=== PATIENT | male | born 1955 | race African-American/Black ===

== ENCOUNTER 2016-10-03 10:36 | Inpatient (IN) ==
--- NOTE | 2016-10-03 10:46 | Emergency Department Note ---
Disposition Clinical Impression: Non-STEMI (non-ST elevated myocardial infarction) Chest pain Qualifiers: Chest pain type: unspecified Qualified Code(s): R07.9 - Chest pain, unspecified Disposition: Admitted As Inpatient Condition: Good Time of Disposition: 11:23 Chest Pain HPI - General Chief Complaint: ED Chest Pain Stated Complaint: Chest pain Time Seen by Provider: 10/03/16 10:43 Source: patient, EMS Mode of arrival: EMS Limitations: no limitations Vital Signs Reviewed: Yes Nursing Notes Reviewed: Yes - History of Present Illness HPI Narrative: 61-year-old patient has been on dialysis for about 6 months developed chest pain was seen at [facility] and was admitted with a positive troponin. The patient did not want to stay at [facility] request transfer to the [place] went to the [place] they did lab work found positive troponin centimeters here for evaluation. Patient's been on dialysis for about 6 months he has a right upper chest dialysis catheter. Patient states he's been having intermittent chest pain. Patient was sent here for evaluation. Pt complaint: chest pain Onset (ago): day(s) Duration: intermittent Onset: during rest Pain Location: substernal, left chest Severity: mild, moderate Quality: tightness, aching, heaviness Pain Radiation: none Improves with: nothing Worsens with: nothing - Related Data Allergies Allergy/AdvReac Type Severity Reaction Status Date / Time Methadone AdvReac Itching Verified 10/03/16 10:46 Constitutional: Denies: fever, chills, weakness, weight change Eyes: Denies: eye pain, eye discharge, vision change ENT ED: Denies: ear pain, throat pain, dental pain, hearing loss, epistaxis, congestion, dysphagia Cardiovascular: Reports: chest pain. Denies: palpitations, dyspnea on exertion , edema, syncope Respiratory: Denies: cough, dyspnea, wheezes, hemoptysis, stridor Gastrointestinal: Denies: abdominal pain, nausea, vomiting, diarrhea, constipation, hematemesis, melena, hematochezia Genitourinary: Denies: urgency, dysuria, frequency, hematuria Musculoskeletal: Denies: back pain, neck pain, arthralgia, myalgia Integumentary: Denies: rash, abrasion, lesions Neurological: Denies: headache, weakness, numbness, paresthesias, confusion, abnormal gait, vertigo Psychiatric: Denies: anxiety, depression, suicidal thoughts, homicidal thoughts , auditory hallucinations, visual hallucinations Endocrine: Denies: fatigue Hematological/Lymphatic: Denies: easy bleeding, easy bruising Allergic/Immunologic: Denies: facial swelling, urticaria Physical Exam - General Limitations: no limitations General appearance: alert, in no apparent distress - Head Head exam: atraumatic, normocephalic, normal inspection - Eye Eye exam: Present: normal appearance, PERRL, EOMI - ENT ENT exam: normal exam, normal oropharynx, mucous membranes moist - Neck Neck exam: Present: normal inspection, full ROM, trachea midline - Chest Chest inspection: Present: normal inspection, symmetric chest wall rise - Respiratory Respiratory exam: Present: normal lung sounds bilaterally - Cardiovascular Cardiovascular exam: Present: regular rate, normal rhythm, normal heart sounds - Abdominal Exam Abdominal exam: Present: soft, Non-Tender. Absent: tenderness, distention, guarding, rebound, rigidity - Extremities Exam Extremities exam: Present: normal inspection, full ROM. Absent: tenderness, pedal edema - Expanded Lower Extremity Exam Neurovascular/Tendon exam: Absent: motor deficit, sensory deficit, tendon deficit Gait: not tested/not observed - Back Exam Back exam: Present: normal inspection - Neurological Exam Neurological exam: Present: alert, oriented X3 - Psychiatric Psychiatric exam: Present: normal affect, normal mood - Skin Skin exam: Present: warm, dry, intact, normal color Course - Reevaluation(s) Reevaluation #1: 61-year-old who was admitted to [facility] with positive troponins. Patient was then sent to the [place] per the patient request and then they were sent here after finding a positive troponin. Patient's had intermittent chest pain. Laboratory results from the [place] today white count is 8 hemoglobin is 10.2 hematocrit, plt 126 was 31.6 BNP is 7649, troponin I was 0.101 with a normal being up to 0.045 CK was 148 AST was 30 a LT 19 bili 0.9 sodium 135 potassium 4.8 chloride of 98 carbon dioxide 25 glucose 208 creatinine 6.17 chest x-ray showed no acute infiltrate or pleural effusion. Time: 11:10 Reevaluation #2: Patient's blood pressure was noted to be elevated at 212/108. We'll apply 1 inch of Nitropaste. Time: 13:34 - Consultations Consultation #1: Discussed with Dr. Ritchie, cardiology will see in consult. Time: 11:18 Consultation #2: Discussed with Oscar Fajardo who accepts the patient for admission. Time: 11:21 Vital Signs Temperature 98 F 10/03/16 10:46 Pulse Rate 69 10/03/16 10:46 Respiratory Rate 18 10/03/16 10:46 Blood Pressure 144/86 10/03/16 10:46 O2 Sat by Pulse Oximetry 99 10/03/16 10:46 Temperature 98 F 10/03/16 10:46 Pulse Rate 69 10/03/16 13:06 Respiratory Rate 18 10/03/16 13:06 Blood Pressure 193/82 10/03/16 13:06 O2 Sat by Pulse Oximetry 100 10/03/16 13:06 Oxygen Delivery Oxygen Delivery Room Air Chest Pain - Lab Data Result diagrams: 10/03/16 11:40 Lab Results 10/03/16 10/03/16 Range/Units 11:40 11:40 WBC 7.4 (4.3-11.1) K/mcL RBC 3.31 L (4.19-5.50) M/mcL Hgb 9.6 L (12.9-16.9) g/dL Hct 30.1 L (37.5-50.1) % MCV 90.9 (83.0-100.0) fL MCH 29.0 (28.0-33.3) pg MCHC 31.9 (31.6-35.5) g/dL RDW 15.9 H (11.5-14.5) % Plt Count 119 L (140-400) K/mcL MPV 11.3 (9.4-12.4) fL PT 14.1 H (9.4-12.1) Seconds INR 1.3 APTT 29.2 (26.0-36.0) Seconds - EKG Data EKG attestation: Yes I reviewed and interpreted this EKG. EKG results narrative: Paced rhythm Heart Score - Score History: Moderately Suspicious EKG: Normal Age: 45-65 Risk Factors: Equal/Greater than 3 risk factor or history of atherosclerotic disease Troponin: 1-3x normal limit HEART Score Total: 5 Critical Care Time Critical Care Time: Yes Total Critical Care Time: 30 Attestation: The high probability of a clinically significant, sudden or life threatening deterioration of the [cardiovascular] system(s) required my full and direct attention, intervention and personal management. The aggregate critical care time was [30] minutes. This time is in addition to time spent performing reported procedures but includes the following: [x] Data Review and interpretation [x] Patient assessment and monitoring of vital signs [x] Documentation [x] Medication orders and management
[2016-10-03] MEDS ORDERED: *HR* Heparin 5,000 UNIT/ML VIAL IVP ONE (11:25)
[2016-10-03] MEDS ORDERED: *HR* Heparin 5,000 UNIT/ML VIAL IVP PRN ×2 (11:25)
[2016-10-03] MEDS ORDERED: Heparin 25,000 UNIT/500 ML D5W 25,000 UNIT/500 ML MLS IVC SCH (11:30)
[2016-10-03 11:48] LABS: Hematocrit 30.1 % (37.5-50.1); Hemoglobin 9.6 g/dL (12.9-16.9); Mean Corpuscular HGB Conc 31.9 g/dL (31.6-35.5); Mean Corpuscular Volume 90.9 fL (83.0-100.0); Mean Platelet Volume 11.3 fL (9.4-12.4); Platelet Count 119 K/mcL (140-400); Red Blood Count 3.31 M/mcL (4.19-5.50); Red Cell Distribution Width 15.9 % (11.5-14.5)
[2016-10-03 11:51] LABS: INR 1.3; Prothrombin Time 14.1 Seconds (9.4-12.1)
[2016-10-03 11:53] LABS: Activated Partial Thrombo Time 29.2 Seconds (26.0-36.0)
[2016-10-03] MEDS ORDERED: Nitroglycerin 1 INCH/GM PACKET TP ONE (13:33)
[2016-10-03] MEDS ORDERED: Ondansetron 4 MG/2 ML VIAL IVP PRN (14:21)
[2016-10-03] MEDS ORDERED: Naloxone 0.4 MG/ML INJ IVP PRN (14:21)
[2016-10-03] MEDS ORDERED: Acetaminophen 325 MG TABLET PO PRN (14:21)
[2016-10-03] MEDS ORDERED: Nitroglycerin 0.4 MG TAB.SUBL SL PRN (14:26)
[2016-10-03] MEDS ORDERED: Ammonium Lactate 30 APPL/225 GM BOTTLE TP PRN (14:26)
[2016-10-03] MEDS ORDERED: INSULIN GLARGINE 14 UNIT SQ SCH (14:30)
--- NOTE | 2016-10-03 14:33 | Nephrology Consult Note ---
<José Miguel Houserlynsey Mckenzie - Last Filed: 10/03/16 14:41> Date of Encounter: 10/03/16 Time of Encounter: 14:28 Assessment and Plan (1) ESRD needing dialysis Current Visit: Yes Status: Acute Will plan for HD tomorrow Continue Phoslo binders Renal diet Phos level Albumin level Avoid nephrotoxins if possible Strict I/Os (2) Hypertension Current Visit: Yes Status: Acute per primary/cardiology teams Qualifiers: Hypertension type: unspecified Qualified Code(s): I10 - Essential (primary ) hypertension (3) Diabetes Current Visit: Yes Status: Acute per primary team Qualifiers: Diabetes mellitus type: other specified (including KAUR) Diabetes mellitus complication status: with kidney complications Diabetes mellitus complication detail: with chronic kidney disease Diabetes mellitus termite 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 helper insulin use: unspecified termite 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 helper insulin use status Chronic kidney disease stage: on chronic dialysis Qualified Code(s): E13.22 - Other specified diabetes mellitus with diabetic chronic kidney disease; N18.6 - End stage renal disease; Z79.4 - jail (current) use of insulin; Z99.2 - Dependence on renal dialysis (4) Chest pain Current Visit: Yes Status: Acute Qualifiers: Chest pain type: unspecified Qualified Code(s): R07.9 - Chest pain, unspecified History of Present Illness - Reason for Consult Consult date: 10/03/16 - Chief Complaint chest pain, ESRD on dialysis - History of Present Illness Mr Velasquez is a 61 year old male who presents to ED with chest pain. PMH includes HTN, CHF, COPD, CAD, thyroid disease, NH, DM, and ESRD requiring HD for the last six months. Patient states he normally runs 3 1/ 2 hours on dialysis at [facility] in [facility] however for the last 3 or so treatments he has had to sign off early due to chest pain. Patient believes the chest pain is because they tell him not to take his b/p meds before dialysis and his b/p runs 230s/130s and does not come down with dialysis. Patient states he ran on dialysis for approximately 2 1/2-3 hours yesterday and once again was taken off early due to chest pain. Patient states he feels like he has fluid in his lungs and is wanting a paracentesis. States dialysis cannot pull more than a liter off before he starts cramping. Patient takes Phoslo 3 tabs TID with meals and says his labs are always very good. Cause of kidney failure is diabetes along with HTN. Patient has a permacath in right upper chest area. Past Med Surg Social Fam HX - Past Medical History Medical history: CHF, COPD, coronary artery disease, diabetes, GERD, hyperlipidemia, hypertension, myocardial infarction, renal disease, thyroid disease Psychiatric history: PTSD - Social History Smoking Status: Never smoker Smokeless Tobacco Status: No Alcohol use: none Drug use: none Medications and Allergies Albuterol Sulfate [Albuterol Inhaler] 2 puff IH Q4HR PRN 10/03/16 [History] Ammonium Lactate [Lac-Hydrin Five] 1 appl TP DAILY PRN 10/03/16 [History] Aspirin [Lo-Dose Aspirin EC] 81 mg PO DAILY 10/03/16 [History] Atorvastatin Calcium 80 mg PO DAILY 10/03/16 [History] Calcium Acetate [Phos-LO] 667 mg PO TIDWM 10/03/16 [History] Carvedilol [Coreg] 25 mg PO BID 10/03/16 [History] Clopidogrel [Plavix] 75 mg PO DAILY 10/03/16 [History] Gabapentin [Neurontin] 300 mg PO HS 10/03/16 [History] HydrOXYzine 10 mg PO TID 10/03/16 [History] Hydralazine HCl 100 mg PO TID 10/03/16 [History] Insulin Glargine [Lantus] 14 unit SQ DAILY 10/03/16 [History] Isosorbide MONOnitrate (24 HR) [Imdur] 60 mg PO DAILY 10/03/16 [History] Lisinopril [Zestril] 20 mg PO DAILY 10/03/16 [History] NIFEdipine [Afeditab Cr] 60 mg PO DAILY 10/03/16 [History] Nitroglycerin [Nitrostat] 0.4 mg SL Q5M PRN 10/03/16 [History] Omeprazole [PriLOSEC] 40 mg PO DAILY 10/03/16 [History] Oxycodone HCl [Roxicodone 30 MG Immed Release] 30 mg PO Q6H 10/03/16 [History] Sennosides [Senokot] 8.6 mg PO DAILY 10/03/16 [History] Warfarin [Coumadin] 5 mg PO SUTUTHSA 10/03/16 [History] Warfarin [Coumadin] 7.5 mg PO MOWEFR 10/03/16 [History] cloNIDine HCl [CloNIDine HCl] 0.1 mg PO TID 10/03/16 [History] Allergies Methadone Adverse Reaction (Verified 10/03/16 10:46) Itching Review of Systems All Systems: reviewed and no additional remarkable complaints except as stated Constitutional: no chills, no fatigue, no fever(s) Nose, mouth and throat: no dizziness Cardiovascular: chest pain, chest pain at rest, no dyspnea, no leg edema Respiratory: dyspnea, no cough Gastrointestinal: cramping, no nausea, no vomiting Neurological: no behavioral changes Exam - Vital Signs Vital signs: Initial Vital Signs Temp Pulse Resp BP Pulse Ox 98 F 69 18 144/86 99 10/03/16 10:46 10/03/16 10:46 10/03/16 10:46 10/03/16 10:46 10/03/16 10:46 Vital Signs - Last 8 Hours Pulse Resp BP Pulse Ox 10/03/16 13:58 18 193/82 10/03/16 13:06 69 18 193/82 100 - General Appearance General appearance: well-developed, well-nourished EENT: ATNC, mucous membranes moist, hearing intact, vision intact Neck: supple Respiratory: clear Cardiology: no edema, normal S1, normal S2 Gastrointestinal: no tenderness, no guarding Integumentary: warm and dry Neurologic: alert and oriented x3 Psychiatric: mood/affect appropriate, cooperative Results - Lab Results 10/03/16 11:40 Consult Discharge Plan - Plan [facility] Care Provider[facility] - <Alyson Ruiz - Last Filed: 10/04/16 12:20> Date of Encounter: 10/03/16 Past Med Surg Social Fam HX - Family History Mother History Unknown: Yes Living Status: Hx Family Cardiac Disorders: Yes (CAD, aneurysm) Father History Unknown: Yes Living Status: Hx Family Cardiac Disorders: Yes (CAD) Hx Family Genitourinary Disorders: Yes (Kidney disease) Brother History Unknown: Yes Living Status: Still Living Hx Family Cardiac Disorders: Yes (Aneurysm) Sister History Unknown: Yes Living Status: Still Living Hx Family Endocrine Disorder: Yes (DM) Exam - Vital Signs Vital signs: Initial Vital Signs Temp Pulse Resp BP Pulse Ox 98 F 69 18 144/86 99 10/03/16 10:46 10/03/16 10:46 10/03/16 10:46 10/03/16 10:46 10/03/16 10:46 Vital Signs - Last 8 Hours Temp Pulse Resp BP Pulse Ox 10/04/16 09:39 98 10/04/16 08:27 97.6 F 71 16 132/68 98 10/04/16 04:58 97.8 F 70 18 111/67 97 Intake and Output 10/03/16 10/04/16 10/04/16 23:59 07:59 15:59 Intake Total 143 / 143 120 / 120 0 / 0 Output Total 200 / 200 0 / 0 Balance -57 / -57 120 / 120 0 / 0 Intake: IV Fluids 143 / 143 120 / 120 Heparin 25,000 UNIT/500 143 / 143 120 / 120 ML D5W 25,000 unit In 500 ml @ 11.6 UNIT/KG/HR 19. 994 mls/hr IVC .Q24H DAVON Rx#:[id number] Oral 0 / 0 Output: Urine 200 / 200 0 / 0 Other: Weight 86.001 kg 86.001 kg Blood Glucose* 109 131 Patient Weight 10/04/16 23:59 Weight 86.001 kg Results - Lab Results 10/04/16 03:34 10/04/16 03:34 Most recent lab results Calcium 8.5 mg/dL (8.6-10.8) L 10/04/16 03:34 Phosphorus 5.4 mg/dL (2.3-4.7) H 10/04/16 03:34 Magnesium 1.9 mg/dL (1.6-2.6) 10/04/16 03:34 - Attending Attestation I examined this patient and my medical decision-making was reviewed with the Resident Physician. I agree with the documented findings, disposition and treatment plan as described except to the extent set forth below. Pt seen and examined with PMH of ESRD on HD for the past 6 months due to DM in [place] [facility]. Last HD yesterday but did not finish due to chest pain. He also has had issues with LE cramps and hypotension making UF difficult. Given chest pain, will monitor today and arrange HD tomorrow if hemodynamics stable with UF as tolerated. Lytes stable. Exam shows no signficant LE edema, mildly distended abdomen, Clear lungs
--- NOTE | 2016-10-03 14:48 | Internal Med History&Physical ---
Date of Encounter: 10/03/16 Time of Encounter: 11:30 Assessment and Plan (1) Chest pain Current visit: Yes Status: Acute Pt has a significant history for CAD. He is now having chest pain on dialysis. His BP is usually markedly elevated at that time as well. Admit to tele Serial troponin Card eval Echo ordered Continue ASA and statin Heparin drip started in ED Qualifiers: Chest pain type: chest pain due to myocardial ischemia Ischemic chest pain type: unstable angina pectoris Qualified Code(s): I20.0 - Unstable angina (2) Hypertension Current visit: Yes Status: Chronic Pt has significant issues with HTN and on multiple antihypertensives. Will continue meds. Renal to eval. Qualifiers: Hypertension type: renovascular hypertension Qualified Code(s): I15.0 - Renovascular hypertension (3) Diabetes Current visit: Yes Status: Chronic Will continue his home insulin dosing and check accuchecks as well. Qualifiers: Diabetes mellitus type: other specified (including KAUR) Diabetes mellitus complication status: with kidney complications Diabetes mellitus complication detail: with chronic kidney disease Diabetes mellitus chcf insulin use: with chcf use Chronic kidney disease stage: on chronic dialysis Qualified Code(s): E13.22 - Other specified diabetes mellitus with diabetic chronic kidney disease; N18.6 - End stage renal disease; Z79.4 - intermediate teacher ( current) use of insulin; Z99.2 - Dependence on renal dialysis (4) CHF (congestive heart failure) Current visit: Yes Status: Chronic Pt relates a history of CHF but no documentation of type of heart failure at this time. Will get echo to assess. Qualifiers: Congestive heart failure type: unspecified congestive heart failure type Congestive heart failure chronicity: chronic Qualified Code(s): I50.9 - Heart failure, unspecified (5) COPD (chronic obstructive pulmonary disease) Current visit: Yes Status: Acute Not in exacerbation. Continue PRN meds. No steroids or abx at this time. Qualifiers: COPD type: unspecified COPD Qualified Code(s): J44.9 - Chronic obstructive pulmonary disease, unspecified (6) Chronic back pain Current visit: Yes Status: Chronic Continue home pain medications. Qualifiers: Back pain location: low back pain Back pain laterality: bilateral Sciatica presence: unspecified whether sciatica present Qualified Code(s): M54.5 - Low back pain; G89.29 - Other chronic pain (7) PTSD (post-traumatic stress disorder) Current visit: Yes Status: Chronic Continue home medications. (8) CAD (coronary artery disease) Current visit: Yes Status: Acute Qualifiers: Coronary Disease-Associated Artery/Lesion type: [place] artery Resighini vs. transplanted heart: [place] heart Associated angina: with unstable angina Qualified Code(s): I25.110 - Atherosclerotic heart disease of [place] coronary artery with unstable angina pectoris Internal Medicine - H&P: HPI Chief complaint: Chest pain Admitted From: Emergency Dept Plans for Post Hospital Care: Home History of present illness: Mr. Velasquez is a 61 year old male with hx of ESRD on HD (lives in [place]) who was sent from [place] urgent care due to positive troponin level. He is usually dialized in [place]. Yesterday he had syncope during his treatment and he was sent to ED at [facility]. His troponin was elevated and he was to be admitted there. He wanted to be sent to the [place] (for coverage) and says he was discharged. He presented to the [place] urgent care today and troponin was again elevated. He was transported to [place] ED. At the present time his only complaint is abdominal swelling. No chest pain. Pt relates being on dialysis for last 6 months. He dialyzes through tunneled catheter in R IJ. He stated he has not been able to complete dialysis treatments due to chest pain and cramping. He is concerned because he still has a lot of fluid in his belly and face. He has had a paracentesis once before and after removal of 2 liters he felt better. He does have a significant cardiac history. He has had 6 stents and CABG. Past Med Surg Social Fam HX - Past Medical History Source: patient Medical history: CHF, COPD, coronary artery disease, diabetes, GERD, hyperlipidemia, hypertension, myocardial infarction, renal disease, thyroid disease Psychiatric history: PTSD - Past Surgical History Surgical History: coronary bypass (CABG) - Social History Smoking Status: Never smoker Smokeless Tobacco Status: No Alcohol use: none Drug use: none Current living situation: Home - Independent Activity Level: Independent ambulation - Family History Mother History Unknown: Yes Living Status: Hx Family Cardiac Disorders: Yes (CAD, aneurysm) Father History Unknown: Yes Living Status: Hx Family Cardiac Disorders: Yes (CAD) Hx Family Genitourinary Disorders: Yes (Kidney disease) Brother History Unknown: Yes Living Status: Still Living Hx Family Cardiac Disorders: Yes (Aneurysm) Sister History Unknown: Yes Living Status: Still Living Hx Family Endocrine Disorder: Yes (DM) - Additional Family History Additional family history: Another brother from aneurysm Internal Medicine - H&P: Meds Albuterol Sulfate [Albuterol Inhaler] 2 puff IH Q4HR PRN 10/03/16 [History] Ammonium Lactate [Lac-Hydrin Five] 1 appl TP DAILY PRN 10/03/16 [History] Aspirin [Lo-Dose Aspirin EC] 81 mg PO DAILY 10/03/16 [History] Atorvastatin Calcium 80 mg PO DAILY 10/03/16 [History] Calcium Acetate [Phos-LO] 667 mg PO TIDWM 10/03/16 [History] Carvedilol [Coreg] 25 mg PO BID 10/03/16 [History] Clopidogrel [Plavix] 75 mg PO DAILY 10/03/16 [History] Gabapentin [Neurontin] 300 mg PO HS 10/03/16 [History] HydrOXYzine 10 mg PO TID 10/03/16 [History] Hydralazine HCl 100 mg PO TID 10/03/16 [History] Insulin Glargine [Lantus] 14 unit SQ DAILY 10/03/16 [History] Isosorbide MONOnitrate (24 HR) [Imdur] 60 mg PO DAILY 10/03/16 [History] Lisinopril [Zestril] 20 mg PO DAILY 10/03/16 [History] NIFEdipine [Afeditab Cr] 60 mg PO DAILY 10/03/16 [History] Nitroglycerin [Nitrostat] 0.4 mg SL Q5M PRN 10/03/16 [History] Omeprazole [PriLOSEC] 40 mg PO DAILY 10/03/16 [History] Oxycodone HCl [Roxicodone 30 MG Immed Release] 30 mg PO Q6H 10/03/16 [History] Sennosides [Senokot] 8.6 mg PO DAILY 10/03/16 [History] Warfarin [Coumadin] 5 mg PO SUTUTHSA 10/03/16 [History] Warfarin [Coumadin] 7.5 mg PO MOWEFR 10/03/16 [History] cloNIDine HCl [CloNIDine HCl] 0.1 mg PO TID 10/03/16 [History] Allergies Methadone Adverse Reaction (Verified 10/03/16 10:46) Itching All Systems PM: A 10-system review of systems was performed and is negative for pertinent findings except as documented above in the HPI. - Constitutional Constitutional: fatigue, malaise, no lethargy - EENT Eyes: no change in vision, no dry eye, no pain Ears: no decreased hearing Nose, mouth and throat: dry mouth, no mouth pain, no sinus pain, no sore throat - Cardiovascular Cardiovascular ROS IM: chest pain, dyspnea, orthopnea, syncope - Respiratory Respiratory: dyspnea, no wheezing, no snoring, no pain on inspiration - Gastrointestinal Gastrointestinal: bloating, no abdominal pain, no hematemesis, no hematochezia, no melena - Genitourinary Genitourinary ROS male: no flank pain, no nocturia - Musculoskeletal Musculoskeletal ROS IM: arthralgias, muscle cramps - Integumentary Integumentary IM: no new lesions, no rash - Neurological Neurological ROS: no abnormal movements, no memory loss, no paresthesias - Endocrine Endocrine IM: no cold intolerance, no flushing - Hematologic/Lymphatic Hematologic/Lymphatic: no lymphadenopathy - Allergic/Immunologic Allergic/Immunologic: no wheezing - Constitutional Vitals: Temp Pulse Resp BP Pulse Ox 98 F 69 18 193/82 100 10/03/16 10:46 10/03/16 13:06 10/03/16 13:58 10/03/16 13:58 10/03/16 13:06 General appearance: Present: A&O X 3, pleasant, answers questions appropriately - Head Head exam: Present: normocephalic - Eye Eye exam: Present: EOMI, conjuntiva pink - ENT ENT exam: Present: mucous membranes dry - Neck Neck exam general surgery: Absent: lymphadenopathy, thyromegaly - Respiratory Respiratory exam: Present: decreased breath sounds, rales. Absent: rhonchi, wheezes - Cardiovascular Cardiovascular exam: Present: RRR. Absent: tachycardia - GI/Abdominal GI/Abdominal exam: Present: distended, normal bowel sounds, soft, no peritoneal signs - Extremities Exam Extremities exam: Present: warm. Absent: pedal edema, tenderness - Neurological Exam Neurological exam: Present: alert, oriented X3, no focal deficits - Psychiatric Psychiatric exam: Present: normal affect, normal mood - Skin Skin exam: Present: dry, warm. Absent: rash Internal Med - H&P Results - Labs CBC & Chem 7: 10/03/16 11:40 - VTE Reasons for not Prescribing Prophylaxis: Not indicated-Anticoagulated or INR therapeutic
[2016-10-03] MEDS ORDERED: Dextrose Gel 15 GM PO PRN ×2 (15:22)
[2016-10-03] MEDS ORDERED: D5% in Water 1,000 ML IVC PRN (15:22)
[2016-10-03] MEDS ORDERED: *HR* Dextrose 50 % in Water (Syg) 50 ML SYRINGE IVP PRN (15:22)
[2016-10-03] MEDS ORDERED: Ipratropium/Albuterol Neb 3 ML IH PRN (15:23)
--- NOTE | 2016-10-03 16:11 | Cardiology Consult Note ---
<Saturnino Good R - Last Filed: 10/03/16 16:49> Date of Encounter: 10/03/16 Time of Encounter: 16:01 Assessment and Plan (1) Elevated troponin Current Visit: Yes Status: [facility] Will trend for total of 3. In setting of ESRD on dialysis and accelerated htn. Reviewed [facility] records from last month where troponins were 0.14, 0.13. They planned for outpt stress test, not yet completed. Troponin elevation likely chronic in setting of his ESRD. Nondiagnostic for ACS. Pt does report chest pain, but correlates with costochondritis, tender on palpation, worse with deep inspiration and coughing. Will check echo to evaluate for pericardial effusion. Known EF of 25% on echo in 2014. Given his significant CAD hx and plan for outpt stress test at [facility], will proceed with stress test tomorrow. Agree with heparin gtt in the meantime, given he has A-Fib as well, on Coumadin. Coumadin now on hold, INR 1.3. Continue Statin, Plavix, BB. Not on ASA due to being on Plavix and Coumadin. (2) Costochondritis Current Visit: Yes Status: Acute Right chest wall tenderness on palpation, worse on palpation and with deep inspiration and coughing. Check echo. Plan for stress test in AM given his significant CAD hx and mild troponins. (3) History of mitral valve repair Current Visit: Yes Status: Acute Hx of mitral valve repair in 2006 at [facility]. Check echo. (4) CAD (coronary artery disease) Current Visit: Yes Status: Acute Hx of CABG in [address] [facility] 02/2014 showed severe atherosclerotic CAD, s/p CABG 2 of 2 patent grafts. Previous stent in SVG graft to OM with 40% in stent stenosis not intervened on. Continue Plavix, Statin, BB, ARIANNE-i, nitrates. Not on ASA due to being on Plavix and Coumadin. Stress test in AM as above. Qualifiers: Coronary Disease-Associated Artery/Lesion type: [place] artery [place] vs. transplanted heart: [place] heart Associated angina: with unstable angina Qualified Code(s): I25.110 - Atherosclerotic heart disease of [place] coronary artery with unstable angina pectoris (5) A-fib Current Visit: Yes Status: Acute Paced. Known hx of A-Fib, anticoagulated on Coumadin managed by [facility] as outpt. Coumadin currently on hold given ischemic eval. On heparin gtt. Continue BB as well for rate. Qualifiers: Atrial fibrillation type: unspecified Qualified Code(s): I48.91 - Unspecified atrial fibrillation (6) Ischemic cardiomyopathy Current Visit: Yes Status: Acute EF 25% on echo 02/2014. Continue BB and ARIANNE-i. ICD in place. Pt appears euvolemic on exam. (7) Accelerated hypertension Current Visit: Yes Status: Acute Most recent BP 196/98. Adjust antihypertensives as warranted. Will give dose of IV Hydralazine and order PRN. Discussion w patient/family: The assessment and plan as outlined above was discussed with the patient and/or family members who expressed understanding and agreement. All questions were answered. Thank you for involving us in the care of your patient. Please call with any questions. I will discuss all the above with Dr. Ritchie and make changes as necessary. History of Present Illness Consult date: 10/03/16 Requesting physician: Oscar Fajardo Consult reason: elevated troponin Chief complaint: Chest pain History of present illness: Mr. Velasquez is a 61 year old male with PMH of ESRD on HD (lives in [place]), CAD s/p CABG in 2006 and subsequent PCI, A-Fib on Coumadin, ICMP s/p ICD, mitral valve repair, LISA, who was sent from [facility] due to a positive troponin level. He receives dialysis in [place]. Yesterday, he had chest pain during dialysis, received a nitro, then had a syncopal event after nitro. He was sent to ED at [facility]. His troponin was elevated and he was to be admitted there. He wanted to be sent to the [facility] (for coverage) and says he was discharged. He presented to the [facility] urgent care today and troponin was again elevated. He was transported to [place] ED. Pt reports the chest pain he experienced has been intermittent for weeks. It is described as right sided pressure, radiates to abdomen. He also has chest wall tenderness on palpation, worsens with deep inspiration, coughing and exertion. He was diaphoretic yesterday. He has been more short of breath on exertion that he attributes to not being able to complete dialysis sessions. He reports this chest pain is different from prior anginal equivalent. He does report that nitro helped a little. He currently has chest pain rated 4/10, but attributes it to high BP at this time. Pt relates being on dialysis for last 6 months. He dialyzes through tunneled catheter in R IJ. He stated he has not been able to complete dialysis treatments due to chest pain and cramping. He is concerned because he still has a lot of fluid in his belly and face. He has had a paracentesis once before and after removal of 2 liters he felt better. I reviewed [facility] records and he was hospitalized there last month for similar complaints. They did abdominal CTs and US and stated there was no ascites or evidence of fluid that needed drained. He also had elevated troponins 0.14, 0.13 and an outpt stress test was ordered, but not yet completed. Prior CV testing: [facility] 03/04/14: Severe atherosclerotic CAD. S/P CABG 2 of 2 patent bypass grafts. Previous stent in SVG graft to OM with 40% in-stent stenosis not intervened on. Echo 03/04/14: Severe segmental LV dysfunction EF 25%, mild concentric LVH, no LVOT obstruction. Probable severe diastolic dysfunction, RV overload, severe RV hypokinesis, hx of mitral valve repair, moderate phtn. Past Med Surg Social Fam HX - Past Medical History Medical history: atrial fibrillation, cardiomyopathy, CHF, COPD, coronary artery disease, diabetes, GERD, hyperlipidemia, hypertension, myocardial infarction, renal disease, thyroid disease, valvular heart disease Psychiatric history: PTSD - Past Surgical History Surgical History: angioplasty/stent, coronary bypass (CABG), pacemaker/AICD, AICD, pacemaker (mitral valve repair) - Social History Smoking Status: Never smoker Smokeless Tobacco Status: No Alcohol use: none Drug use: none - Family History Mother History Unknown: Yes Living Status: Hx Family Cardiac Disorders: Yes (CAD, aneurysm) Father History Unknown: Yes Living Status: Hx Family Cardiac Disorders: Yes (CAD) Hx Family Genitourinary Disorders: Yes (Kidney disease) Brother History Unknown: Yes Living Status: Still Living Hx Family Cardiac Disorders: Yes (Aneurysm) Sister History Unknown: Yes Living Status: Still Living Hx Family Endocrine Disorder: Yes (DM) Medications and Allergies Albuterol Sulfate [Albuterol Inhaler] 2 puff IH Q4HR PRN 10/03/16 [History] Ammonium Lactate [Lac-Hydrin Five] 1 appl TP DAILY PRN 10/03/16 [History] Aspirin [Lo-Dose Aspirin EC] 81 mg PO DAILY 10/03/16 [History] Atorvastatin Calcium 80 mg PO DAILY 10/03/16 [History] Calcium Acetate [Phos-LO] 667 mg PO TIDWM 10/03/16 [History] Carvedilol [Coreg] 25 mg PO BID 10/03/16 [History] Clopidogrel [Plavix] 75 mg PO DAILY 10/03/16 [History] Gabapentin [Neurontin] 300 mg PO HS 10/03/16 [History] HydrOXYzine 10 mg PO TID 10/03/16 [History] Hydralazine HCl 100 mg PO TID 10/03/16 [History] Insulin Glargine [Lantus] 14 unit SQ DAILY 10/03/16 [History] Isosorbide MONOnitrate (24 HR) [Imdur] 60 mg PO DAILY 10/03/16 [History] Lisinopril [Zestril] 20 mg PO DAILY 10/03/16 [History] NIFEdipine [Afeditab Cr] 60 mg PO DAILY 10/03/16 [History] Nitroglycerin [Nitrostat] 0.4 mg SL Q5M PRN 10/03/16 [History] Omeprazole [PriLOSEC] 40 mg PO DAILY 10/03/16 [History] Oxycodone HCl [Roxicodone 30 MG Immed Release] 30 mg PO Q6H 10/03/16 [History] Sennosides [Senokot] 8.6 mg PO DAILY 10/03/16 [History] Warfarin [Coumadin] 5 mg PO SUTUTHSA 10/03/16 [History] Warfarin [Coumadin] 7.5 mg PO MOWEFR 10/03/16 [History] cloNIDine HCl [CloNIDine HCl] 0.1 mg PO TID 10/03/16 [History] Allergies Methadone Adverse Reaction (Verified 10/03/16 10:46) Itching All Systems Review: A 10-system review of systems was performed and is negative for pertinent findings except as documented above in the HPI. - Cardiovascular Cardiovascular: as per HPI, chest pain at rest, chest pain with exertion, diaphoresis, dyspnea on exertion - Respiratory Respiratory: dyspnea Physical Examination Vital Signs, Last 4 Hours Temp Pulse Resp BP Pulse Ox 10/03/16 14:51 97.8 F 80 16 196/98 98 10/03/16 13:58 18 193/82 10/03/16 13:06 69 18 193/82 100 Vital Signs Temp Pulse Resp BP Pulse Ox 10/03/16 14:51 97.8 F 80 16 196/98 98 10/03/16 13:58 18 193/82 10/03/16 13:06 69 18 193/82 100 10/03/16 10:46 98 F 69 18 144/86 99 Intake and Output 10/03/16 10/03/16 10/03/16 07:59 15:59 23:59 Other: Weight 86.183 kg Patient Weight 10/03/16 23:59 Weight 86.183 kg General: Conversant, No Apparent Distress HEENT: Atraumatic, Normocephaly, Mucus Membranes Moist Neck: No JVD, Normal carotid pulses Cardiac: Reg Rate and Rhythm, Normal S1 and S2, No Murmur Lungs: Normal Breath Sounds, No Wheeze, Rales, Rhonchi Neuro: Alert and responsive, No focal deficits noted Abdomen: Soft, Non-Tender Skin: No rashes noted on visualized skin Musculoskeletal: Other (right chest wall tenderness on palpation) Extremities: No Clubbing, No Cyanosis, No Edema, Normal Pulses Results 10/03/16 11:40 Short CBC 10/03/16 Range/Units 11:40 WBC 7.4 (4.3-11.1) K/mcL Hgb 9.6 L (12.9-16.9) g/dL Hct 30.1 L (37.5-50.1) % Plt Count 119 L (140-400) K/mcL Active Medications Acetaminophen (Tylenol) 650 mg PO Q6HR PRN PRN Reason: Mild Pain (1-3) Stop: 04/04/17 14:22 Albuterol/Ipratropium (Duoneb) 3 ml IH [id number] PRN PRN Reason: Shortness Of Breath/Wheezing Stop: 04/04/17 15:24 Aspirin (Aspirin Ec) 81 mg PO DAILY [facility] Stop: 04/04/17 14:31 Atorvastatin Calcium (Lipitor) 80 mg PO DAILY [facility] Stop: 04/04/17 14:31 Calcium Acetate (Phos-Lo) 667 mg PO TIDWM [facility] Stop: 04/04/17 17:01 Carvedilol (Coreg) 25 mg PO BIDWM [facility] PRN Reason: Protocol Stop: 04/04/17 17:01 Clonidine HCl (Clonidine Hcl) 0.1 mg PO TID [facility] Stop: 04/04/17 15:01 Clopidogrel Bisulfate (Plavix) 75 mg PO DAILY [facility] Stop: 04/04/17 14:31 Dextrose/Water (Dextrose 50% (Syg)) 25 ml IVP AD PRN PRN Reason: Hypoglycemia Stop: 04/04/17 15:23 Docusate Sodium (Colace) 100 mg PO BID PRN PRN Reason: Constipation Stop: 04/04/17 14:22 Gabapentin (Neurontin) 300 mg PO HS [facility] Stop: 04/04/17 21:01 Glucagon (Glucagen) 1 mg IM ONCE PRN PRN Reason: Hypoglycemia Stop: 04/04/17 15:23 Glucose (Gluctose) 15 gm PO ONCE PRN PRN Reason: Hypoglycemia Stop: 04/04/17 15:23 Glucose (Gluctose) 30 gm PO ONCE PRN PRN Reason: Hypoglycemia Stop: 04/04/17 15:23 Heparin Sodium (Porcine) (Heparin) 4,000 unit IVP Q6HR PRN PRN Reason: SEE COMMENTS Stop: 04/04/17 11:26 Heparin Sodium (Porcine) (Heparin) 2,000 unit IVP Q6H PRN PRN Reason: SEE COMMENTS Stop: 04/04/17 11:26 Hydralazine HCl (Hydralazine) 100 mg PO TID [facility] Stop: 04/04/17 15:01 Hydroxyzine HCl (Hydroxyzine) 10 mg PO TID [facility] Stop: 04/04/17 15:01 Heparin Sodium/Dextrose (Heparin 25,000 Unit/500 Ml D5w) 25,000 unit in 500 mls @ 19.994 mls/hr IVC .Q24H [facility]; 11.6 UNIT/KG/HR PRN Reason: Protocol Stop: 04/04/17 11:31 Last Admin: 10/03/16 12:58 Dose: 11.6 unit/kg/hr, 19.994 mls/hr Dextrose (Dextrose 5%) 1,000 mls @ 100 mls/hr IVC .Q10H PRN PRN Reason: HYPOGLYCEMIA Stop: 04/04/17 15:23 Insulin Detemir (Levemir) 14 unit SQ DAILY [facility] Stop: 04/04/17 15:13 Insulin Human Lispro (Humalog) 0 units SQ HS [facility] PRN Reason: Protocol Stop: 04/04/17 21:01 Insulin Human Lispro (Humalog) 0 units SQ TIDAC [facility] PRN Reason: Protocol Stop: 04/04/17 16:31 Isosorbide Mononitrate (Imdur) 60 mg PO DAILY [facility] Stop: 04/04/17 14:31 Lactic Acid (Amlactin) 1 appl TP DAILY PRN PRN Reason: Skin Irritation Stop: 04/01/17 14:27 Lisinopril (Zestril) 20 mg PO DAILY [facility] PRN Reason: Protocol Stop: 04/04/17 14:31 Naloxone HCl (Narcan) 0.4 mg IVP Q2MIN PRN PRN Reason: Opioid Reversal Stop: 04/04/17 14:22 Nifedipine (Procardia Xl) 60 mg PO DAILY [facility] Stop: 04/04/17 14:31 Nitroglycerin (Nitroglycerin) 0.4 mg SL Q5M PRN PRN Reason: Chest Pain Stop: 04/04/17 14:27 Omeprazole (Prilosec) 40 mg PO DAILY@0630 [facility] PRN Reason: Protocol Stop: 04/04/17 14:31 Ondansetron HCl (Zofran) 4 mg IVP Q8HR PRN PRN Reason: Nausea And Vomiting Stop: 04/04/17 14:22 Oxycodone HCl (Roxicodone) 30 mg PO Q6H [facility] Stop: 04/04/17 15:01 Senna (Senna) 8.6 mg PO DAILY [facility] Stop: 04/04/17 14:31 - Imaging and Cardiology Echo: report reviewed Cardiac cath: report reviewed - EKG Interpretation EKG results cardiology: personally reviewed (paced) Consult Discharge Plan - Plan [facility]: [facility] Provider[facility] - <Gaetano Ritchie - Last Filed: 10/03/16 19:43> Date of Encounter: 10/03/16 Assessment and Plan Discussion w patient/family: The assessment and plan as outlined above was discussed with the patient and/or family members who expressed understanding and agreement. All questions were answered. Thank you for involving us in the care of your patient. Please call with any questions. History of Present Illness History of present illness: Mr. Velasquez is a 61 year old male All Systems Review: A 10-system review of systems was performed and is negative for pertinent findings except as documented above in the HPI. Physical Examination Vital Signs, Last 4 Hours Temp Pulse Resp BP Pulse Ox 10/03/16 17:24 97.9 F 70 16 198/75 99 Results 10/03/16 11:40 10/03/16 15:56 Lab Results 10/03/16 10/03/16 15:56 15:56 Sodium 136 Potassium 5.4 H Chloride 102 Carbon Dioxide 14 L BUN 46 H Creatinine 6.28 H Glucose 257 H Calcium 8.9 Troponin I 0.08 H* - Attending Attestation Pt seen and examined independently, chart reviewed, reviewed records from [facility] and [facility]: Chest pain Pt complains of mid sternal chest pain, occurs during dialysis, 6/10 at most severe, associated with mild nausea and diaphoresis, resolves within three minutes with one sublingual ntg., occurs at least every other dialysis run, usually two hours into dialyisis tx. Typically dialysis is stopped due to hypotension provoked by sl ntg. He reports his dry weight is climbing due to incomplete dialysis, He was evaluated at [facility] / for this chest pain, found to have elevated troponin, recommended stress imaging, pt declined, wished to be transferred to [place] for insurance coverage issues. He was discharged, followed up in [facility] clinic this am, found to have elevated troponin, continued right sided chest pain, and referred to [facility] for further evaluation. Pt reports chest pain has improved, now 3/10, down from 6/10, but not resolved. Chest pain is more severe with deep inspiration and cough. He also describes a sensation of chest fullness, with difficulty taking a deep breath, which he reports is similar to discomfort with previous pericardial effusion, which resolved following pericardialcentesis. IMP/Plan 1. Chest pain, with associated nausea and diaphoresis, no acute EKG changes, will continue to monitor cardiac enzemes. He is a candidate for lexiscan cardiolyte stress imaging, will schedule for tomorrow am. 2. Elevated troponin, minimal elevation, appears chronic and persistantly elevated, suspect due to poor renal clearance rather than new myocardial necrosis, will trend, stress imaging ordered, eval ischemic substrate 3. CAD - severe three vessel dx post CABG x 3, PCI x 1 unknown vessel, old records requested. 4. Costrochondritis: right sided chest wall pain, reproducible to palpation, pain control with oral analgesics. 5. ESRD - on dialysis 6. Paroxysmal A fib, now in AV paced rhythm, 7. Ischemic cardiomyopathy, last EF 25%l 8. BEH - not well controlled, will continue to adjust antihypertensive meds.
[2016-10-03] MEDS: Insulin LISPRO 300 UNITS/3 ML VIAL SQ SCH ×2 (17:10→20:14)
[2016-10-03] MEDS: hydrALAZINE 25 MG TABLET PO SCH ×2 (17:11→20:15)
[2016-10-03] MEDS: Aspirin Enteric Coated 81 MG Tablet PO SCH (17:11)
[2016-10-03] MEDS: Sennosides 8.6 MG TABLET PO SCH (17:11)
[2016-10-03] MEDS: NIFEdipine XL (24 HR) 60 MG TAB.ER.24 PO SCH (17:11)
[2016-10-03] MEDS: Lisinopril 20 MG TABLET PO SCH (17:11)
[2016-10-03] MEDS: cloNIDine HCl 0.1 MG TABLET PO SCH ×2 (17:11→20:11)
[2016-10-03] MEDS: Insulin DETEMIR 100 UNIT/ML X5UNITS SQ SCH (17:11)
[2016-10-03] MEDS: Isosorbide MONOnitrate (24 HR) 60 MG TAB.ER.24H PO SCH (17:11)
[2016-10-03] MEDS: Calcium Acetate 667 MG CAPSULE PO SCH (17:11)
[2016-10-03] MEDS: *HR* OxyCODONE Immed Rel 15 MG TABLET PO SCH ×2 (17:11→22:19)
[2016-10-03 17:26] LABS: Calcium 8.9 mg/dL (8.6-10.8)
[2016-10-03 17:42] LABS: Potassium 5.4 mEq/L (3.5-4.5)
[2016-10-03] MEDS: Gabapentin 300 MG CAPSULE PO SCH (20:09)
[2016-10-04 03:58] LABS: Basophils # 0.1 K/mcL (0.0-0.2); Basophils % 1.3 %; Eosinophils # 0.5 K/mcL (0.0-0.6); Eosinophils % 7.3 %; Hematocrit 28.1 % (37.5-50.1); Hemoglobin 8.9 g/dL (12.9-16.9); Immature Granulocytes % 0.6 % (0-4); Lymphocytes # 1.6 K/mcL (0.6-4.6); Lymphocytes % 23.5 %; Mean Corpuscular HGB Conc 31.7 g/dL (31.6-35.5); Mean Corpuscular Volume 91.5 fL (83.0-100.0); Mean Platelet Volume 11.7 fL (9.4-12.4); Monocytes # 0.6 K/mcL (0.0-1.3); Monocytes % 8.3 %; Neutrophils # 4.1 K/mcL (1.6-8.9); Nucleated Red Blood Cells 0.3 /100 WBC (0); Platelet Count 118 K/mcL (140-400); Red Blood Count 3.07 M/mcL (4.19-5.50); Red Cell Distribution Width 15.9 % (11.5-14.5)
[2016-10-04 04:13] LABS: Albumin 2.9 g/dL (3.5-5.0)
[2016-10-04 04:14] LABS: Phosphorous 5.4 mg/dL (2.3-4.7)
[2016-10-04 04:15] LABS: Calcium 8.5 mg/dL (8.6-10.8); Magnesium 1.9 mg/dL (1.6-2.6)
[2016-10-04 04:16] LABS: Potassium 4.4 mEq/L (3.5-4.5)
[2016-10-04] MEDS: *HR* OxyCODONE Immed Rel 15 MG TABLET PO SCH ×4 (04:59→18:26)
[2016-10-04] MEDS ORDERED: Regadenoson 0.4 MG/5 ML SYRINGE IVP ONE (06:04)
[2016-10-04] MEDS: Aspirin Enteric Coated 81 MG Tablet PO SCH (09:19)
[2016-10-04] MEDS: Insulin LISPRO 300 UNITS/3 ML VIAL SQ SCH ×4 (09:19→21:57)
[2016-10-04] MEDS: Calcium Acetate 667 MG CAPSULE PO SCH ×3 (09:19→16:09)
[2016-10-04] MEDS: cloNIDine HCl 0.1 MG TABLET PO SCH ×3 (09:19→21:56)
[2016-10-04] MEDS: hydrALAZINE 25 MG TABLET PO SCH ×3 (09:20→21:55)
[2016-10-04] MEDS: Isosorbide MONOnitrate (24 HR) 60 MG TAB.ER.24H PO SCH (09:20)
[2016-10-04] MEDS: Insulin DETEMIR 100 UNIT/ML X5UNITS SQ SCH ×2 (09:20→21:57)
[2016-10-04] MEDS: NIFEdipine XL (24 HR) 60 MG TAB.ER.24 PO SCH (09:20)
[2016-10-04] MEDS: Sennosides 8.6 MG TABLET PO SCH (09:21)
[2016-10-04] MEDS: Lisinopril 20 MG TABLET PO SCH (09:21)
--- NOTE | 2016-10-04 10:17 | Cardiology Progress Note ---
Date of Encounter: 10/04/16 Time of Encounter: 10:30 Assessment and Plan (1) Elevated troponin Current Visit: Yes Status: Acute Per Cardiology: Troponin 0.10 at MD and peak here 0.10 in setting of ESRD on dialysis and accelerated htn. Past hx of chronic elevated trops at [facility]. Reviewed [facility] records from last month where troponins were 0.14, 0.13. They planned for outpt stress test, not yet completed. Troponin elevation likely chronic in setting of his ESRD. Nondiagnostic for ACS, suspect dermand ischemia. No cardiac rehab consult warranted. Pt does report chest pain, but correlates with costochondritis, tender on palpation, worse with deep inspiration and coughing. Current echo shows EF 30%. Stress test pending. Agree with heparin gtt in the meantime, given he has A-Fib as well, on Coumadin. Coumadin now on hold, INR 1.3. Continue Statin, Plavix, BB. Not on ASA due to being on Plavix and Coumadin. Will address Hep gtt and Coumadin once ST resulted. (2) CAD (coronary artery disease) Current Visit: Yes Status: Chronic Per Cardiology: Hx of CABG in 2006 and subsequent PCI. [facility] 02/2014 showed severe atherosclerotic CAD, s/p CABG 2 of 2 patent grafts. Previous stent in SVG graft to OM with 40% in stent stenosis not intervened on. On Plavix, Statin, BB, ARIANNE-i, nitrates. Not on ASA due to being on Plavix and Coumadin. Qualifiers: Coronary Disease-Associated Artery/Lesion type: [place] artery [place] vs. transplanted heart: [place] heart Associated angina: with unstable angina Qualified Code(s): I25.110 - Atherosclerotic heart disease of [place] coronary artery with unstable angina pectoris (3) A-fib Current Visit: Yes Status: Acute Per Cardiology: Paced. Known hx of A-Fib, anticoagulated on Coumadin managed by [facility] as outpt. Coumadin currently on hold given potential ischemic eval. On heparin gtt. Continue BB as well for rate. Qualifiers: Atrial fibrillation type: unspecified Qualified Code(s): I48.91 - Unspecified atrial fibrillation (4) Accelerated hypertension Current Visit: Yes Status: Acute Per Cardiology: Elevated 190's on arrival. Now 130's. Adjust antihypertensives as warranted. (5) Ischemic cardiomyopathy Current Visit: Yes Status: Chronic Per Cardiology: EF 25% on echo 02/2014. Now 30%. Continue BB and ARIANNE-i. ICD in place. Pt appears euvolemic on exam. Dialysis pending. Discussed with Nephrology and pending abdominal eval for potential ascites. (6) ESRD needing dialysis Current Visit: Yes Status: Chronic Per Cardiology: Dialysis pending today after stress test. (7) History of mitral valve repair Current Visit: Yes Status: Chronic Per Cardiology: Hx of mitral valve repair in 2006 at [facility]. No evidence of regurgitation or stenosis. Discussion w patient/family: The assessment and plan as outlined above was discussed with the patient who expressed understanding and agreement. All questions were answered. Thank you for involving us in the care of your patient. Please call with any questions. Subjective Principal diagnosis: Elevated Trop Interval history: Patient reports midsternal/right-sided chest discomfort about 1 out of 10 worse with palpation and deep inspiration. He reports pending dialysis today. Denies any short of breath or palpitations. Reports potential evaluation for fluid removal from abdomen. Objective Vital Signs, Last 4 Hours Temp Pulse Resp BP Pulse Ox 10/04/16 09:39 98 10/04/16 08:27 97.6 F 71 16 132/68 98 General: Conversant, No Apparent Distress HEENT: Atraumatic, Normocephaly, Mucus Membranes Moist Cardiac: Reg Rate and Rhythm, Normal S1 and S2, No Murmur Lungs: Normal Breath Sounds, No Wheeze, Rales, Rhonchi Neuro: Alert and responsive, No focal deficits noted Abdomen: Soft, Non-Tender, Other (distended) Skin: No rashes noted on visualized skin Musculoskeletal: No Chest Wall Tenderness Extremities: No Clubbing, No Cyanosis, Normal Pulses, Other (+1 nonpitting bilateral LE edema) Results 10/04/16 03:34 10/04/16 03:34 Lab Results Laboratory Tests 03/04/14 03/30/14 10/03/16 02:49 01:33 11:40 Hgb 9.6 L Hct 30.1 L Plt Count INR Creatinine Est GFR (Non-Af Amer) Troponin I 0.16 H* 0.15 H* 10/03/16 10/03/16 10/03/16 11:40 15:56 20:37 Hgb Hct Plt Count INR 1.3 Creatinine Est GFR (Non-Af Amer) Troponin I 0.08 H* 0.09 H* 10/04/16 10/04/16 10/04/16 03:34 03:34 03:34 Hgb 8.9 L Hct 28.1 L Plt Count 118 L INR Creatinine 7.01 H Est GFR (Non-Af Amer) 8 L Troponin I 0.10 H* Intake & Output 10/01/16 10/02/16 10/03/16 10/04/16 23:59 23:59 23:59 23:59 Intake Total 143 / 143 120 / 120 Output Total 200 / 200 0 / 0 Balance -57 / -57 120 / 120 Weight 86.183 kg 86.001 kg Active Medications Acetaminophen (Tylenol) 650 mg PO Q6HR PRN PRN Reason: Mild Pain (1-3) Stop: 04/04/17 14:22 Albuterol/Ipratropium (Duoneb) 3 ml IH [id number] PRN PRN Reason: Shortness Of Breath/Wheezing Stop: 04/04/17 15:24 Aspirin (Aspirin Ec) 81 mg PO DAILY [facility] Stop: 04/04/17 14:31 Last Admin: 10/04/16 09:19 Dose: Not Given Atorvastatin Calcium (Lipitor) 80 mg PO DAILY [facility] Stop: 04/04/17 14:31 Last Admin: 10/04/16 09:20 Dose: Not Given Calcium Acetate (Phos-Lo) 667 mg PO TIDWM [facility] Stop: 04/04/17 17:01 Last Admin: 10/04/16 09:19 Dose: Not Given Carvedilol (Coreg) 25 mg PO BIDWM [facility] PRN Reason: Protocol Stop: 04/04/17 17:01 Last Admin: 10/04/16 09:19 Dose: Not Given Clonidine HCl (Clonidine Hcl) 0.1 mg PO TID [facility] Stop: 04/04/17 15:01 Last Admin: 10/04/16 09:19 Dose: Not Given Clopidogrel Bisulfate (Plavix) 75 mg PO DAILY [facility] Stop: 04/04/17 14:31 Last Admin: 10/04/16 09:20 Dose: Not Given Dextrose/Water (Dextrose 50% (Syg)) 25 ml IVP AD PRN PRN Reason: Hypoglycemia Stop: 04/04/17 15:23 Docusate Sodium (Colace) 100 mg PO BID PRN PRN Reason: Constipation Stop: 04/04/17 14:22 Gabapentin (Neurontin) 300 mg PO HS [facility] Stop: 04/04/17 21:01 Last Admin: 10/03/16 20:09 Dose: 300 mg Glucagon (Glucagen) 1 mg IM ONCE PRN PRN Reason: Hypoglycemia Stop: 04/04/17 15:23 Glucose (Gluctose) 15 gm PO ONCE PRN PRN Reason: Hypoglycemia Stop: 04/04/17 15:23 Glucose (Gluctose) 30 gm PO ONCE PRN PRN Reason: Hypoglycemia Stop: 04/04/17 15:23 Heparin Sodium (Porcine) (Heparin) 4,000 unit IVP Q6HR PRN PRN Reason: SEE COMMENTS Stop: 04/04/17 11:26 Heparin Sodium (Porcine) (Heparin) 2,000 unit IVP Q6H PRN PRN Reason: SEE COMMENTS Stop: 04/04/17 11:26 Last Admin: 10/03/16 22:20 Dose: 2,000 unit Hydralazine HCl (Hydralazine) 100 mg PO TID [facility] Stop: 04/04/17 15:01 Last Admin: 10/04/16 09:20 Dose: Not Given Hydralazine HCl (Hydralazine) 10 mg IVP Q6HR PRN PRN Reason: Hypertension Stop: 04/04/17 16:52 Hydroxyzine HCl (Hydroxyzine) 10 mg PO TID [facility] Stop: 04/04/17 15:01 Last Admin: 10/04/16 09:20 Dose: Not Given Heparin Sodium/Dextrose (Heparin 25,000 Unit/500 Ml D5w) 25,000 unit in 500 mls @ 19.994 mls/hr IVC .Q24H [facility]; 11.6 UNIT/KG/HR PRN Reason: Protocol Stop: 04/04/17 11:31 Last Titration: 10/04/16 05:05 Dose: 13.28 unit/kg/hr, 22.9 mls/hr Dextrose (Dextrose 5%) 1,000 mls @ 100 mls/hr IVC .Q10H PRN PRN Reason: HYPOGLYCEMIA Stop: 04/04/17 15:23 Insulin Detemir (Levemir) 14 unit SQ DAILY [facility] Stop: 04/04/17 15:13 Last Admin: 10/04/16 09:20 Dose: Not Given Insulin Human Lispro (Humalog) 0 units SQ HS [facility] PRN Reason: Protocol Stop: 04/04/17 21:01 Last Admin: 10/03/16 20:14 Dose: Not Given Insulin Human Lispro (Humalog) 0 units SQ TIDAC [facility] PRN Reason: Protocol Stop: 04/04/17 16:31 Last Admin: 10/04/16 09:19 Dose: Not Given Isosorbide Mononitrate (Imdur) 60 mg PO DAILY [facility] Stop: 04/04/17 14:31 Last Admin: 10/04/16 09:20 Dose: Not Given Lactic Acid (Amlactin) 1 appl TP DAILY PRN PRN Reason: Skin Irritation Stop: 04/01/17 14:27 Lisinopril (Zestril) 20 mg PO DAILY [facility] PRN Reason: Protocol Stop: 04/04/17 14:31 Last Admin: 10/04/16 09:21 Dose: Not Given Naloxone HCl (Narcan) 0.4 mg IVP Q2MIN PRN PRN Reason: Opioid Reversal Stop: 04/04/17 14:22 Nifedipine (Procardia Xl) 60 mg PO DAILY [facility] Stop: 04/04/17 14:31 Last Admin: 10/04/16 09:20 Dose: Not Given Nitroglycerin (Nitroglycerin) 0.4 mg SL Q5M PRN PRN Reason: Chest Pain Stop: 04/04/17 14:27 Omeprazole (Prilosec) 40 mg PO DAILY@0630 [facility] PRN Reason: Protocol Stop: 04/04/17 14:31 Last Admin: 10/04/16 04:59 Dose: Not Given Ondansetron HCl (Zofran) 4 mg IVP Q8HR PRN PRN Reason: Nausea And Vomiting Stop: 04/04/17 14:22 Oxycodone HCl (Roxicodone) 30 mg PO Q6H [facility] Stop: 04/04/17 15:01 Last Admin: 10/04/16 09:20 Dose: Not Given Senna (Senna) 8.6 mg PO DAILY [facility] Stop: 04/04/17 14:31 Last Admin: 10/04/16 09:21 Dose: Not Given - Imaging and Cardiology Stress Test: pending Echo: report reviewed - EKG Interpretation EKG results cardiology: other (tele shows avg HR 71, av pacing) - VTE Reasons for not Prescribing Prophylaxis: Not indicated-Anticoagulated or INR therapeutic Consult Discharge Plan - Plan [facility]errals: [facility] [Primary Care Provider] -
--- NOTE | 2016-10-04 10:25 | Internal Med Progress Note ---
<Juwan Carrera - Last Filed: 10/04/16 16:05> Date of Encounter: 10/04/16 Time of Encounter: 10:18 - Assessment and plan (1) ESRD needing dialysis Current Visit: Yes Status: Chronic Assessment and plan: stops HTN Rx during HD his BP's will go to 230's/130's and won't improve post- HD. On 10/02 - patient LOC and diaphoretic during HD and was stopped short, was went to [place] and then transferred to [place]. Started HD 6 months ago, HD MWF. Prerviously had HD for KOLE. access tunnel cath - HD scheduled for today. Will attempt UF of 2-3kg as tolerated with albumin bolus first and sequential mode - nephro following - closely monitor electrolytes (2) A-fib Current Visit: Yes Status: Acute Assessment and plan: anticoagulated on coumadin, but currently on hold due to ischemic eval. - ct. heparin gtt - ct carvedilol for rate control Qualifiers: Atrial fibrillation type: unspecified Qualified Code(s): I48.91 - Unspecified atrial fibrillation (3) Accelerated hypertension Current Visit: Yes Status: Acute Assessment and plan: On admission BP 190's. responded to 10 mg IV hydralazine. stress report and nuclear exam is negative for ischemia. - Today SBP 111-132 - continue clonidine 0.1 TID, hydralazine 100 mg TID + 10 mg TID + 10 mg IV PRN , imdur 60mg, lisinopril 20 mg - give 10 mg IV PRN hydralazine - cards recommmended increase Imdur 120 mg PO daily. - FU with primary pediatric care coordinator - DC IV hep gtt, and resume coumadin. (4) CAD (coronary artery disease) Current Visit: Yes Status: Chronic Assessment and plan: CABG in 2006 with PCI. [facility] 02/2014 showed severe atherosclerotic CAD, s/p CABG 2 of 2 patent grafts. Previous stent in SVG graft to OM with 40% in stent, stenosis not intervened on. Not on ASA due to being on Plavix and Coumadin. Ct. Plavix, Statin, BB, ARIANNE-i, nitrates. Qualifiers: Coronary Disease-Associated Artery/Lesion type: [place] artery [place] vs. transplanted heart: [place] heart Associated angina: with unstable angina Qualified Code(s): I25.110 - Atherosclerotic heart disease of [place] coronary artery with unstable angina pectoris (5) COPD (chronic obstructive pulmonary disease) Current Visit: Yes Status: Acute Assessment and plan: 98% on RA - give O2 if SpO2 <92% Qualifiers: COPD type: unspecified COPD Qualified Code(s): J44.9 - Chronic obstructive pulmonary disease, unspecified (6) Elevated troponin Current Visit: Yes Status: Acute Assessment and plan: [facility], and hx of chronic trops. At [facility] trops 0.13, 0.14 - Trops since admission 0.09 and 0.10. had nuclear stress test today and echo showed no ischemia (7) Chest pain Current Visit: Yes Status: Acute Assessment and plan: Cardiology following. 2 day stress and echo were negative for ischemic tissue Qualifiers: Chest pain type: chest pain due to myocardial ischemia Ischemic chest pain type: unstable angina pectoris Qualified Code(s): I20.0 - Unstable angina - Subjective Interval history: Mr. Velasquez is a 61 year old male on day 1 of admission. He was admitted due to "passing out" and "sweating" during HD w/ history of HTN, CHF, COPD, CAD, IA' s 2 stents and 4 vessel CABG, thyroid Dz, Diabetes, ESRD Dialysis for last 6 months and previous HD in 2014 for acute renal failure. Associated Chest pain for last 7 years 3-05/29 constantly and started after CABG in 2006. [place]. improves with rest. controlled with pain meds. located on right costo midline anterior. Today he reports his chest pain is still present but it's there all the time. denies SOB, n/v/f/c. - Constitutional Vitals: Temp Pulse Resp BP Pulse Ox 97.6 F 71 16 132/68 98 10/04/16 08:27 10/04/16 08:27 10/04/16 08:27 10/04/16 08:27 10/04/16 09:39 General appearance: Present: A&O X 3, pleasant, answers questions appropriately - Head Head exam: Present: atraumatic, normocephalic - Respiratory Respiratory exam: Present: decreased breath sounds. Absent: rales, rhonchi, wheezes - Cardiovascular Cardiovascular exam: Present: RRR, systolic murmur (heard at Left 4-5 intercostal space, and at apex.) - GI/Abdominal GI/Abdominal exam: Present: diminished bowel sounds - Neurological Exam Neurological exam: Present: alert, oriented X3 - Psychiatric Psychiatric exam: Present: normal affect, normal mood Internal Medicine: Result - Labs CBC & Chem 7: 10/04/16 03:34 10/04/16 03:34 Labs: Short CBC 10/04/16 Range/Units 03:34 WBC 6.9 (4.3-11.1) K/mcL Hgb 8.9 L (12.9-16.9) g/dL Hct 28.1 L (37.5-50.1) % Plt Count 118 L (140-400) K/mcL Neutrophils # 4.1 (1.6-8.9) K/mcL BMP 10/03/16 10/04/16 15:56 03:34 Sodium 136 135 L Potassium 5.4 H 4.4 D Chloride 102 99 Carbon Dioxide 14 L 26 BUN 46 H 55 H Creatinine 6.28 H 7.01 H Glucose 257 H 167 H Calcium 8.9 8.5 L Cardiac Enzymes 10/03/16 10/03/16 10/04/16 Range/Units 15:56 20:37 03:34 Troponin I 0.08 H* 0.09 H* 0.10 H* (0-0.03) ng/mL Liver Function 10/04/16 Range/Units 03:34 Albumin 2.9 L (3.5-5.0) g/dL - ABG Interpretation ABG results: PT/INR, D-dimer PT 14.1 Seconds (9.4-12.1) H 10/03/16 11:40 - VTE Reasons for not Prescribing Prophylaxis: Not indicated-Anticoagulated or INR therapeutic Consult Discharge Plan - Plan [facility]errals: [facility] [Primary Care Provider] - <Andres Zheng P - Last Filed: 10/04/16 18:02> Date of Encounter: 10/04/16 - Constitutional Vitals: Temp Pulse Resp BP Pulse Ox 97.7 F 71 22 156/87 98 10/04/16 14:50 10/04/16 08:27 10/04/16 14:50 10/04/16 17:35 10/04/16 09:39 Internal Medicine: Result - Labs CBC & Chem 7: 10/04/16 03:34 10/04/16 03:34 Labs: Short CBC 10/04/16 Range/Units 03:34 WBC 6.9 (4.3-11.1) K/mcL Hgb 8.9 L (12.9-16.9) g/dL Hct 28.1 L (37.5-50.1) % Plt Count 118 L (140-400) K/mcL Neutrophils # 4.1 (1.6-8.9) K/mcL BMP 10/04/16 03:34 Sodium 135 L Potassium 4.4 D Chloride 99 Carbon Dioxide 26 BUN 55 H Creatinine 7.01 H Glucose 167 H Calcium 8.5 L Cardiac Enzymes 10/03/16 10/04/16 Range/Units 20:37 03:34 Troponin I 0.09 H* 0.10 H* (0-0.03) ng/mL Liver Function 10/04/16 Range/Units 03:34 Albumin 2.9 L (3.5-5.0) g/dL - ABG Interpretation ABG results: PT/INR, D-dimer PT 12.8 Seconds (9.4-12.1) H 10/04/16 15:39 - Impressions Impressions Abdomen/Pelvis/Transvag US 10/04/16 00:00 IMPRESSION: 1. No ascites seen. No paracentesis performed. D/ / Cristobal Medel MD / Cristobal Medel MD Interpreting Provider: Cristobal Medel MD - Attending Attestation I examined this patient and my medical decision-making was reviewed with the Resident Physician. I agree with the documented findings, disposition and treatment plan as described except to the extent set forth below. cardiology and nephrology recommendations appreciated.
[2016-10-04] MEDS ORDERED: 0.9 % Sodium Chloride 250 ML IVC PRN (11:07)
[2016-10-04] MEDS ORDERED: Albumin 25% 12.5gm/50mL 12.5 GM/50 ML IV.SOLN IVPB PRN (11:12)
[2016-10-04] MEDS ORDERED: 0.9 % Sodium Chloride 1,000 ML PRIME SCH (11:15)
--- NOTE | 2016-10-04 12:23 | Nephrology Progress Note ---
Date of Encounter: 10/04/16 Time of Encounter: 10:00 - Assessment and Plan (1) ESRD needing dialysis Current Visit: Yes Status: Chronic Will proceed with HD after stress test completed Will attempt UF of 2-3kg as tolerated with albumin bolus first and sequential mode Continue phoslo for binder (2) Anemia Current Visit: Yes Status: Acute Hgb noted low, will check iron levels and start EPO Qualifiers: Anemia type: due to chronic kidney disease (3) Chest pain Current Visit: Yes Status: Acute Per cardiology Qualifiers: Chest pain type: unspecified Qualified Code(s): R07.9 - Chest pain, unspecified (4) CHF (congestive heart failure) Current Visit: Yes Status: Chronic Will have IR scan abdomen for ascites and perform paracentesis if needed as HD cannot improve ascites Qualifiers: Congestive heart failure type: unspecified congestive heart failure type Congestive heart failure chronicity: chronic Qualified Code(s): I50.9 - Heart failure, unspecified Subjective Principal diagnosis: Elevated Trop Interval history: Pt seen and examined with no chest pain. He reports feeling "full" in his abdomen with facila swelling but no SOB. He has completed first phase of stress test with second part pending. Objective - Vital Signs Vital signs: Vital Signs Temp Pulse Resp BP Pulse Ox 10/04/16 09:39 98 10/04/16 08:27 97.6 F 71 16 132/68 98 10/04/16 04:58 97.8 F 70 18 111/67 97 10/03/16 20:08 98.1 F 78 18 177/66 97 10/03/16 17:24 97.9 F 70 16 198/75 99 10/03/16 14:51 97.8 F 80 16 196/98 98 10/03/16 13:58 18 193/82 10/03/16 13:06 69 18 193/82 100 Intake and Output 10/03/16 10/04/16 10/04/16 23:59 07:59 15:59 Intake Total 143 / 143 120 / 120 0 / 0 Output Total 200 / 200 0 / 0 Balance -57 / -57 120 / 120 0 / 0 Intake: IV Fluids 143 / 143 120 / 120 Heparin 25,000 UNIT/500 143 / 143 120 / 120 ML D5W 25,000 unit In 500 ml @ 11.6 UNIT/KG/HR 19. 994 mls/hr IVC .Q24H [facility] Rx#:[id number] Oral 0 / 0 Output: Urine 200 / 200 0 / 0 Other: Weight 86.001 kg 86.001 kg Blood Glucose* 109 131 Patient Weight 10/04/16 23:59 Weight 86.001 kg - Lab 10/04/16 03:34 10/04/16 03:34 Most recent lab results Calcium 8.5 mg/dL (8.6-10.8) L 10/04/16 03:34 Phosphorus 5.4 mg/dL (2.3-4.7) H 10/04/16 03:34 Magnesium 1.9 mg/dL (1.6-2.6) 10/04/16 03:34 - VTE Reasons for not Prescribing Prophylaxis: Not indicated-Anticoagulated or INR therapeutic Consult Discharge Plan - Plan [facility]errals: [facility] [Primary Care Provider] -
[2016-10-04] MEDS ORDERED: Albumin 25% 12.5gm/50mL 25.0 GM/100 ML IV.SOLN ONE (13:38)
[2016-10-04] MEDS ORDERED: 0.9 % Sodium Chloride 1,000 ML ONE ×2 (13:38→16:47)
--- NOTE | 2016-10-04 14:32 | Electrocardiograph Report ---
[place] [address] Test Date: 2016-10-03 Pat Name: Alvarez Velasquez Department: 105 Room: 2A Gender: M Rod Mill Tender: PARAG : 1955 Requested By: Tomy Thomas Order Number: [id number] Reading MD: Giovanny Reyna MD Measurements Intervals [place] Rate: 69 P: -14 MO: 128 QRS: 162 QRSD: 179 T: -35 QT: 474 QTc: 494 Interpretive Statements ELECTRONIC ATRIAL PACEMAKER ELECTRONIC VENTRICULAR PACEMAKER Electronically Signed On 10-04-2016 14:30:15 EDT by Giovanny Reyna MD
--- NOTE | 2016-10-04 14:38 | Nuclear Medicine Stress Report ---
Regadenoson Nuclear Stress Name: Alvarez Velasquez Date of Study: 10/04/2016 Date: 1955 Ht: 70.0 in Medical Record#: [id number] Age: 61 Wt: 189.0 lb Gender: Male Order #: [id number] Location: [facility] Room: [facility] Supervising Provider: Mayito Andersen CNP Reading Physician: Aydee Busby DO Ordering Physician: Andres Zheng MD Primary Care Physician: [facility] Stress Technologist: Lakia Ham, TRANSPORT NURSE, CCT, CPFT Sheep Sorter: Juwan Winters Indications: Chest Pain Impression: Perfusion imaging was negative for ischemia. Infarct involving the inferior wall, inferolateral and anterolateral solis. Gated EF = 42%. History: Hypertension Diabetes Hypercholesteremia Prior PCI History of Coronary Artery Bypass Surgery Stress Test Summary: Stress Test Type: Pharmacologic Regadenoson 0.4mg/5ml given IV Baseline Information: Initial Heart Rate: 81 Blood Pressure: 120/80 Stress Information: Stress Time: 4 min sec Test Terminated Due to (primary): As per protocol Maximum Blood Pressure: 130/75 Maximum Heart Rate: 75 Percent Maximum Heart Rate Achieved: 49 Double Product: 9750 METS Reached: 1 Symptoms: Shortness of breath Nuclear Summary: SPECT myocardial perfusion imaging using Tc99m Sestamibi given intravenously was performed at rest and following cardiac stress testing. The resting images were obtained following initial dose of 11.5 mCi. Following stress an additional dose of 35.6 mCi was given at peak exercise or 30 seconds post regadenoson infusion. Medication Given: Time Medication Dose Units Route Findings: Stress Note * Resting ECG demonstrated a v-paced rhythm. * Pharmacologic stress ECG is non diagnostic for ischemia due to baseline paced rhythm. * No arrhythmias were noted during stress. * Patient had no chest pain during stress. Hemodynamic responses * Normal hemodynamic responses to pharmacologic stress. Study Quality * Study quality was fair. Gated EF % * Gated EF = 45%. Left Ventricle * The left ventricle may be dilated. TID * No evidence of transient ischemic dilatation. Lung Uptake * There is no evidence of increase lung uptake. PERFUSION * There is a medium sized fixed defect with severe to absent perfusion involving the basal to distal inferior wall, inferolaterlateral and anterolateral solis. * Other segments demonstrate homogeneous rest and stress radiotracer uptake. Updated by Aydee Busby on 10/04/2016 2:26:06 PM electronically signed on 10/04/2016 2:31:20 PM with status of Final
--- NOTE | 2016-10-04 14:55 | Event Note ---
Date of Encounter: 10/04/16 Time of Encounter: 15:00 - Cardiology Event Note Per discussion with Dr. Busby and review of stress report, nuclear exam negative for ischemia. Increased Imdur to 120mg PO daily. Will s/o, re-consult PRN, f/u with his primary plodding operator. Will DC IV Hep. gtt, resume Coumadin.
[2016-10-04] MEDS ORDERED: Isosorbide MONOnitrate (24 HR) 60 MG TAB.ER.24H PO ONE (15:00)
[2016-10-04 16:20] LABS: INR 1.2; Prothrombin Time 12.8 Seconds (9.4-12.1)
[2016-10-04 17:34] LABS: Hepatitis B Surface Antibody 177.53 mIU/mL; Hepatitis B Surface Antigen Nonreactive (Nonreactive)
[2016-10-04] MEDS ORDERED: Warfarin perPT PO PRN (18:00)
[2016-10-04] MEDS ORDERED: *HR* Warfarin 7.5 MG TABLET PO ONE (18:00)
[2016-10-04] MEDS: Gabapentin 300 MG CAPSULE PO SCH (21:55)
[2016-10-05] MEDS: *HR* OxyCODONE Immed Rel 15 MG TABLET PO SCH ×4 (03:57→22:00)
[2016-10-05] MEDS: Calcium Acetate 667 MG CAPSULE PO SCH ×3 (08:27→17:10)
[2016-10-05] MEDS: hydrALAZINE 25 MG TABLET PO SCH ×3 (08:27→21:57)
[2016-10-05] MEDS: cloNIDine HCl 0.1 MG TABLET PO SCH ×4 (08:27→22:00)
[2016-10-05] MEDS: Isosorbide MONOnitrate (24 HR) 60 MG TAB.ER.24H PO SCH (08:28)
[2016-10-05] MEDS: Sennosides 8.6 MG TABLET PO SCH (08:28)
[2016-10-05] MEDS: NIFEdipine XL (24 HR) 60 MG TAB.ER.24 PO SCH (08:30)
[2016-10-05] MEDS: Insulin LISPRO 300 UNITS/3 ML VIAL SQ SCH ×4 (08:30→21:51)
[2016-10-05] MEDS: Lisinopril 20 MG TABLET PO SCH (08:31)
[2016-10-05 08:48] LABS: Hematocrit 32.1 % (37.5-50.1); Mean Corpuscular HGB Conc 31.2 g/dL (31.6-35.5); Mean Corpuscular Hemoglobin 28.7 pg (28.0-33.3); Mean Platelet Volume 10.7 fL (9.4-12.4); Platelet Count 116 K/mcL (140-400); Red Blood Count 3.49 M/mcL (4.19-5.50); Red Cell Distribution Width 16.2 % (11.5-14.5)
[2016-10-05 08:53] LABS: INR 1.2; Prothrombin Time 13.1 Seconds (9.4-12.1)
[2016-10-05 09:01] LABS: Calcium 9.2 mg/dL (8.6-10.8); Potassium 4.6 mEq/L (3.5-4.5)
[2016-10-05] MEDS ORDERED: 0.9 % Sodium Chloride 250 ML IVC PRN (09:17)
[2016-10-05] MEDS ORDERED: *HR* Heparin 10,000 UNIT/10 ML VIAL IV PRN (09:17)
[2016-10-05] MEDS ORDERED: 0.9 % Sodium Chloride 1,000 ML ONE (10:13)
--- NOTE | 2016-10-05 10:53 | Nephrology Progress Note ---
Date of Encounter: 10/05/16 Time of Encounter: 10:51 - Assessment and Plan (1) ESRD needing dialysis Current Visit: Yes Status: Chronic Ultrafiltration today, will try and remove another 3 liters Chest xray shows cardiomegaly with central vascular congestion. Avoid nephrotoxins if possible (2) Hypertension Current Visit: Yes Status: Chronic Improved per primary team Qualifiers: Hypertension type: renovascular hypertension Qualified Code(s): I15.0 - Renovascular hypertension (3) Diabetes Current Visit: Yes Status: Chronic per primary team Qualifiers: Diabetes mellitus type: other specified (including KAUR) Diabetes mellitus complication status: with kidney complications Diabetes mellitus complication detail: with chronic kidney disease Diabetes mellitus detention insulin use: with detention use Chronic kidney disease stage: on chronic dialysis Qualified Code(s): 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 States he is feeling well today. Objective - Vital Signs Vital signs: Vital Signs Temp Pulse Resp BP Pulse Ox 10/05/16 10:35 133/75 10/05/16 10:20 144/70 10/05/16 10:05 97.8 F 16 158/71 10/05/16 08:40 97 10/05/16 07:15 97.7 F 74 18 131/58 97 10/05/16 03:34 98.0 F 72 18 150/81 98 10/04/16 23:28 98.6 F 71 18 151/80 97 10/04/16 20:34 98.3 F 76 18 158/80 97 10/04/16 19:13 97.8 F 20 174/86 10/04/16 18:05 167/84 10/04/16 17:50 151/80 10/04/16 17:35 156/87 10/04/16 17:20 140/73 10/04/16 17:05 160/73 10/04/16 16:50 149/67 10/04/16 16:35 146/56 10/04/16 16:20 151/63 10/04/16 16:05 152/66 10/04/16 15:50 152/66 10/04/16 15:35 136/61 10/04/16 15:20 147/82 10/04/16 15:05 149/82 10/04/16 14:50 97.7 F 22 152/85 Intake and Output 10/04/16 10/05/16 10/05/16 23:59 07:59 15:59 Intake Total 240 / 240 480 / 480 360 / 360 Output Total 3345 / 3345 400 / 400 Balance -3105 / -3105 80 / 80 360 / 360 Intake: Oral 240 / 240 480 / 480 360 / 360 Output: Urine 0 / 0 400 / 400 Total Dialysis (HD) 3345 / 3345 Output Other: Meal Dinner Breakfast Percent of Meal Consumed 100% 100% Weight 85.5 kg Blood Glucose* 251 Hemodialysis Net Fluid 3045 931 Removed (mL) Patient Weight 10/05/16 23:59 Weight 85.5 kg - General Appearance General appearance: Present: well-developed, well-nourished EENT: Present: ATNC, mucous membranes moist, hearing intact, vision intact Neck: Present: supple Respiratory: Present: clear Cardiology: Present: no edema, normal S1, normal S2 Dialysis Vascular Access: Venous Catheter Gastrointestinal: Present: no guarding Integumentary: Present: warm and dry Psychiatric: Present: mood/affect appropriate, cooperative - Lab 10/05/16 08:39 10/05/16 08:39 Most recent lab results Calcium 9.2 mg/dL (8.6-10.8) 10/05/16 08:39 Phosphorus 5.4 mg/dL (2.3-4.7) H 10/04/16 03:34 Magnesium 1.9 mg/dL (1.6-2.6) 10/04/16 03:34 - VTE Reasons for not Prescribing Prophylaxis: Not indicated-Anticoagulated or INR therapeutic Consult Discharge Plan - Plan [facility]errals: [facility] [Primary Care Provider] -
--- NOTE | 2016-10-05 11:40 | Discharge Summary ---
<Juwan Carrera - Last Filed: 10/05/16 14:17> Date of Encounter: 10/05/16 Time of Encounter: 11:36 - Discharge Diagnosis (1) ESRD needing dialysis Priority: Primary Status: Chronic (2) A-fib Priority: Secondary Status: Acute Qualifiers: Atrial fibrillation type: unspecified Qualified Code(s): I48.91 - Unspecified atrial fibrillation (3) Accelerated hypertension Priority: Secondary Status: Acute (4) CAD (coronary artery disease) Priority: Secondary Status: Chronic Qualifiers: Coronary Disease-Associated Artery/Lesion type: [place] artery [place] vs. transplanted heart: [place] heart Associated angina: with unstable angina Qualified Code(s): I25.110 - Atherosclerotic heart disease of [place] coronary artery with unstable angina pectoris (5) COPD (chronic obstructive pulmonary disease) Priority: Secondary Status: Acute Qualifiers: COPD type: unspecified COPD Qualified Code(s): J44.9 - Chronic obstructive pulmonary disease, unspecified (6) Elevated troponin Priority: Secondary Status: Acute (7) Chest pain Priority: Secondary Status: Acute Qualifiers: Chest pain type: chest pain due to myocardial ischemia Ischemic chest pain type: unstable angina pectoris Qualified Code(s): I20.0 - Unstable angina - Discharge Medications Home Medications: Albuterol Sulfate [Albuterol Inhaler] 2 puff IH Q4HR PRN 10/03/16 [History] Ammonium Lactate [Lac-Hydrin Five] 1 appl TP DAILY PRN 10/03/16 [History] Aspirin [Lo-Dose Aspirin EC] 81 mg PO DAILY 10/03/16 [History] Atorvastatin Calcium 80 mg PO DAILY 10/03/16 [History] Calcium Acetate [Phos-LO] 667 mg PO TIDWM 10/03/16 [History] Carvedilol [Coreg] 25 mg PO BID 10/03/16 [History] Clopidogrel [Plavix] 75 mg PO DAILY 10/03/16 [History] Gabapentin [Neurontin] 300 mg PO HS 10/03/16 [History] HydrOXYzine 10 mg PO TID 10/03/16 [History] Hydralazine HCl 100 mg PO TID 10/03/16 [History] Insulin Glargine [Lantus] 14 unit SQ DAILY 10/03/16 [History] Lisinopril [Zestril] 20 mg PO DAILY 10/03/16 [History] NIFEdipine [Afeditab Cr] 60 mg PO DAILY 10/03/16 [History] Nitroglycerin [Nitrostat] 0.4 mg SL Q5M PRN 10/03/16 [History] Omeprazole [PriLOSEC] 40 mg PO DAILY 10/03/16 [History] Oxycodone HCl [Roxicodone 30 MG Immed Release] 30 mg PO Q6H 10/03/16 [History] Sennosides [Senokot] 8.6 mg PO DAILY 10/03/16 [History] Warfarin [Coumadin] 5 mg PO SUTUTHSA 10/03/16 [History] Warfarin [Coumadin] 7.5 mg PO MOWEFR 10/03/16 [History] cloNIDine HCl [CloNIDine HCl] 0.1 mg PO TID 10/03/16 [History] Isosorbide MONOnitrate (24 HR) [Imdur] 120 mg PO DAILY 10/05/16 [Rx] Allergies/Adverse Reactions: 3 Allergy/AdvReac Type Severity Reaction Status Date / Time Methadone AdvReac Itching Verified 10/03/16 10:46 Procedures/tests Complete & Pending: Procedures Performed prior 72 hours Category Date Time Status IR US abdomen limited [IR] Routine Exams 10/04/16 Completed NM grupo perf SPECT multi [NM] Routine Exams 10/03/16 16:51 Taken EV echocardiogram Routine Y 10/03/16 14:30 Completed SP pharm nuclear stress Routine Y 10/04/16 07:05 Completed Date of admission: 10/03/16 13:03 [facility] physician: [facility] Consults: 10/03/16 14:25 Consult to Physician [CONS] Routine Consulting Provider: Alyson Ruiz Reason for Consult: ESRD Time Notified: 12:00 Call Completed: Yes 10/04/16 11:15 Consult to Dialysis [CONS] ONCE 10/04/16 12:44 Consult to Interventional Radiology [CONS] Routine Consulting Provider: Radiology Interventional Cols Reason for Consult: Paracentesis Time Notified: 12:45 Call Completed: Yes 10/05/16 09:30 Consult to Dialysis [CONS] ONCE - Patient Status Disposition: Home, Self-Care Condition: Good Overall status at discharge: patient is back to baseline (transfer to [place] or release to home) - Discharge Instructions Follow Up With: [facility] [Primary Care Provider] - 10/12/16 2:45 pm - Diet and Activity Activity: increase activity as tolerated Diet: low salt diet Hospital course: Mr. Velasquez is a 61 year old male who is brought in due to losing consciousness, hypertension, cramping, and early termination of dialysis with history of ESRD on HD access RIJ, 6 stents and CABG. Patient received HD on with UF of 2-3 kg w/ albumin bolus and sequential mode was tolerated removed 3L. Second HD on 10/05 was tolerated removed 3L. Patient has chronic chest pain with chronically elevated trops. Cardiology was consulted. nuc Stress test, echo, ekg showed no acute impressions. BP was running SBP >150, imdur was increased to 120 mg. Patient admits to non- adherence to meds when his SBP is <140. Chronic anemia - hgb remain 9-10 during hospitalization - Time Spent with Patient Total time spent providing and/or coordinating discharge services: - Constitutional Vitals: Temp Pulse Resp BP Pulse Ox 97.8 F 74 16 139/80 97 10/05/16 10:05 10/05/16 07:15 10/05/16 10:05 10/05/16 11:05 10/05/16 08:40 General appearance: Present: A&O X 3, pleasant, answers questions appropriately - Head Head exam: Present: atraumatic, normocephalic - Neck Neck exam general surgery: Present: supple, trachea midline. Absent: lymphadenopathy - Respiratory Respiratory exam: Present: CTAB. Absent: accessory muscle use, rales, rhonchi, wheezes - Cardiovascular Cardiovascular exam: Present: RRR, +S1, +S2. Absent: diastolic murmur, gallop, rubs, systolic murmur - GI/Abdominal GI/Abdominal exam: Present: distended, normal bowel sounds, soft, no peritoneal signs. Absent: tenderness - VTE Reasons for not Prescribing Prophylaxis: Not indicated-Anticoagulated or INR therapeutic <Andres Zheng P - Last Filed: 10/05/16 18:20> Date of Encounter: 10/05/16 Procedures/tests Complete & Pending: Procedures Performed prior 72 hours Category Date Time Status IR US abdomen limited [IR] Routine Exams 10/04/16 Completed NM grupo perf SPECT multi [NM] Routine Exams 10/03/16 16:51 Taken EV echocardiogram Routine Y 10/03/16 14:30 Completed SP pharm nuclear stress Routine Y 10/04/16 07:05 Completed Date of admission: 10/03/16 13:03 Primary care physician: [facility] Consults: 10/03/16 14:25 Consult to Physician [CONS] Routine Consulting Provider: Alyson Ruiz Reason for Consult: ESRD Time Notified: 12:00 Call Completed: Yes 10/04/16 11:15 Consult to Dialysis [CONS] ONCE 10/04/16 12:44 Consult to Interventional Radiology [CONS] Routine Consulting Provider: Radiology Interventional Cols Reason for Consult: Paracentesis Time Notified: 12:45 Call Completed: Yes 10/05/16 09:30 Consult to Dialysis [CONS] ONCE Hospital course: Mr. Velasquez is a 61 year old male - Time Spent with Patient Total time spent providing and/or coordinating discharge services: - Constitutional Vitals: Temp Pulse Resp BP Pulse Ox 97.6 F 73 18 118/57 98 10/05/16 17:17 10/05/16 17:17 10/05/16 17:17 10/05/16 17:17 10/05/16 17:17 - Attending Attestation I examined this patient and my medical decision-making was reviewed with the Resident Physician. I agree with the documented findings, disposition and treatment plan as described except to the extent set forth below. home after HD
[2016-10-05] MEDS ORDERED: *HR* Warfarin 5 MG TABLET PO SCH (18:00)
[2016-10-05] MEDS: Gabapentin 300 MG CAPSULE PO SCH (21:58)
[2016-10-05] MEDS: Insulin DETEMIR 100 UNIT/ML X5UNITS SQ SCH (22:01)
[2016-10-06] MEDS: *HR* OxyCODONE Immed Rel 15 MG TABLET PO SCH ×3 (01:58→17:58)
[2016-10-06] MEDS ORDERED: 0.9 % Sodium Chloride 250 ML IVC PRN (07:51)
[2016-10-06] MEDS ORDERED: *HR* Heparin 10,000 UNIT/10 ML VIAL IV PRN (07:59)
[2016-10-06 08:00] LABS: Hematocrit 31.1 % (37.5-50.1); Hemoglobin 9.8 g/dL (12.9-16.9); Mean Corpuscular HGB Conc 31.5 g/dL (31.6-35.5); Mean Corpuscular Hemoglobin 28.8 pg (28.0-33.3); Mean Corpuscular Volume 91.5 fL (83.0-100.0); Mean Platelet Volume 10.4 fL (9.4-12.4); Platelet Count 111 K/mcL (140-400); Red Cell Distribution Width 15.9 % (11.5-14.5)
[2016-10-06 08:05] LABS: INR 1.2; Prothrombin Time 13.3 Seconds (9.4-12.1)
[2016-10-06 08:12] LABS: Calcium 9.2 mg/dL (8.6-10.8); Potassium 4.9 mEq/L (3.5-4.5)
[2016-10-06] MEDS: Calcium Acetate 667 MG CAPSULE PO SCH ×2 (08:16→12:57)
[2016-10-06] MEDS: Insulin LISPRO 300 UNITS/3 ML VIAL SQ SCH ×3 (08:16→17:00)
[2016-10-06] MEDS ORDERED: 0.9 % Sodium Chloride 2,000 ML ONE (08:25)
--- NOTE | 2016-10-06 12:15 | Nephrology Progress Note ---
Date of Encounter: 10/06/16 Time of Encounter: 09:15 - Assessment and Plan (1) ESRD needing dialysis Status: Chronic Cont HD every M/W/F with HD ordered for today for clearance and volume status. There is very minimal edema on exam and so I suspect his report of dyspena/ shortness of breath is not volume related. 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 I suspect there may be a risk for non-adherence in this pt (2) Accelerated hypertension Status: Chronic Counseled him on lifestyle modifications. I spent >50% of my time with him (20- 25min) counseling him on low sodium, fluid restriction, renal diet, weight loss : all of which would help with BP control.. (3) Anemia Status: Chronic Goal Hgb 10-11 in the setting of ESRD. Will monitor. Qualifiers: Anemia type: due to chronic kidney disease Chronic kidney disease stage: on chronic dialysis Qualified Code(s): N18.6 - End stage renal disease; D63.1 - Anemia in chronic kidney disease; Z99.2 - Dependence on renal dialysis Subjective Principal diagnosis: Elevated Trop Interval history: Pt was s/e while on HD. He said that his primary coastal/harbor defense officer was in [place] and he could not recall who. He reported having a hx of occ missed HD treatments and edema. He did not affirm N/V/D or cramping while on HD. Objective - Vital Signs Vital signs: Vital Signs Temp Pulse Resp BP Pulse Ox 10/06/16 11:52 98.5 F 66 14 109/63 94 10/06/16 11:30 98 F 18 149/83 10/06/16 11:10 121/64 10/06/16 10:55 104/66 10/06/16 10:40 120/60 10/06/16 10:25 121/70 10/06/16 10:10 117/65 10/06/16 09:55 110/65 10/06/16 09:40 115/54 10/06/16 09:25 130/73 10/06/16 09:10 129/72 10/06/16 08:55 126/72 10/06/16 08:40 114/66 10/06/16 08:25 127/75 10/06/16 08:10 97.7 F 18 130/76 10/06/16 07:53 98.3 F 74 16 123/75 97 10/06/16 05:16 97.9 F 70 16 120/73 90 10/06/16 00:36 98.4 F 78 16 88/51 96 10/05/16 21:50 96 10/05/16 19:57 98.5 F 72 16 124/64 97 10/05/16 17:17 97.6 F 73 18 118/57 98 10/05/16 12:20 97.2 F L 18 136/82 Intake and Output 10/05/16 10/06/16 10/06/16 23:59 07:59 15:59 Intake Total 400 / 400 600 / 600 Output Total 3600 / 3600 Balance 400 / 400 -3000 / -3000 Intake: Oral 400 / 400 0 / 0 Intake, Rinseback and 600 / 600 Flushes Output: Urine 0 / 0 Total Dialysis (HD) 3600 / 3600 Output Other: Meal Dinner Percent of Meal Consumed 25% Blood Glucose* 127 123 121 Hemodialysis Net Fluid 3000 Removed (mL) - General Appearance General appearance: Present: well-developed, well-nourished, appears started age , obese EENT: Present: ATNC, PERRL, mucous membranes moist Neck: Present: supple Respiratory: Present: clear Cardiology: Present: edema (minimal ankle edema b/l), regular rate, normal S1, normal S2 Dialysis Vascular Access: Arteriovenous Fistula thrill: Yes bruit: Yes Gastrointestinal: Present: normoactive bowel sounds, no tenderness, no guarding Integumentary: Present: no rash, warm and dry Neurologic: Present: no focal deficit, no asterixis, alert and oriented x3 Musculoskeletal: Present: no erythema, no clubbing Psychiatric: Present: mood/affect appropriate, cooperative - Lab 10/06/16 07:47 10/06/16 07:47 Most recent lab results Calcium 9.2 mg/dL (8.6-10.8) 10/06/16 07:47 Phosphorus 5.4 mg/dL (2.3-4.7) H 10/04/16 03:34 Magnesium 1.9 mg/dL (1.6-2.6) 10/04/16 03:34 - VTE Reasons for not Prescribing Prophylaxis: Not indicated-Anticoagulated or INR therapeutic Consult Discharge Plan - Plan Instructions: Myocardial Infarction (DC), Atrial Fibrillation (DC), Chest Pain (DC), Diabetes Mellitus Type 2 in Adults (DC), Chronic Obstructive Pulmonary Disease (DC), Chronic Hypertension (DC) Referrals: [facility] [Primary Care Provider] - 10/12/16 2:45 pm
[2016-10-06] MEDS: hydrALAZINE 25 MG TABLET PO SCH ×2 (12:43→17:58)
[2016-10-06] MEDS: cloNIDine HCl 0.1 MG TABLET PO SCH ×2 (12:44→17:58)
[2016-10-06] MEDS: Lisinopril 20 MG TABLET PO SCH (12:48)
[2016-10-06 12:52] VITALS: BP 131/74
[2016-10-06] MEDS: NIFEdipine XL (24 HR) 60 MG TAB.ER.24 PO SCH (12:57)
[2016-10-06] MEDS: Sennosides 8.6 MG TABLET PO SCH (12:57)
[2016-10-06] MEDS: Isosorbide MONOnitrate (24 HR) 60 MG TAB.ER.24H PO SCH (12:58)
[2016-10-06] MEDS ORDERED: *HR* Warfarin 7.5 MG TABLET PO SCH (18:00)
== END 2016-10-06 18:00 | disposition home or self-care (01) | DRG 205 ==
LOC: EMEROO 10:36 → 2ANU 13:03
PROVIDERS: ADMIT Internal Medicine; ATTEND Internal Medicine